=== PATIENT | male | born 1960 | race Two or more races ===

== ENCOUNTER 2020-02-06 03:36 | Emergency (ER) | payer OTHER ==
[~2020-02-06] VITALS: Ht 175.3 cm; Wt 72.6 kg
== END 2020-02-06 09:56 | disposition home or self-care (01) ==
LOC: ER 03:36
DX: N40.1 Benign prostatic hyperplasia with lower urinary tract symptoms (principal); R33.8 Other retention of urine; R31.0 Gross hematuria; Z03.818 Encounter for observation for suspected exposure to other biological agents ruled out

== ENCOUNTER 2021-09-19 21:26 | Inpatient (IN) | payer OTHER ==
[~2021-09-19] VITALS: Ht 172.7 cm; Wt 75.7 kg
[2021-09-25] MEDS ORDERED: CIPROFLOXACIN500 MG PO (11:55)
== END 2021-09-25 12:10 | disposition home or self-care (01) | DRG 690 ==
LOC: ER 21:26 → MEDI 09-20 10:20
PROVIDERS: ADMIT Internal Medicine; ATTEND Internal Medicine
DX: N39.0 Urinary tract infection, site not specified (principal); N41.0 Acute prostatitis; R33.8 Other retention of urine; D72.828 Other elevated white blood cell count; B96.89 Other specified bacterial agents as the cause of diseases classified elsewhere; N40.0 Benign prostatic hyperplasia without lower urinary tract symptoms; Z20.822 Contact with and (suspected) exposure to COVID-19

== ENCOUNTER 2023-02-09 15:03 | Emergency (ER) | payer OTHER ==
[~2023-02-09] VITALS: Ht 172.7 cm; Wt 71.2 kg
[~2023-02-09 15:03] MED LIST: CIPROFLOXACIN500 MG PO
[2023-02-09] MEDS ORDERED: TADALAFIL5 MG PO (15:56)
[2023-02-09] MEDS ORDERED: UROXATRAL10 MG (15:56)
[2023-02-09 17:15] LABS: URINE APPEARANCE Clear; URINE BILIRRUBIN Negative (NEGATIVE); URINE BLOOD Trace; URINE COLOR Yellow; URINE GLUCOSE Negative (NEGATIVE); URINE LEUKOCYTE Moderate; URINE NITRATE Negative; URINE PROTEIN Negative (NEGATIVE); URINE UROBILINOGEN 0.2 E.U./dl
[2023-02-09 17:16] LABS: URINE BACTERIA 240.6 uL (0.0-1933); URINE EPITHELIAL CELLS 11.4 uL (0.0-38.8); URINE RBC 9.9 uL (0.0-20.8); URINE WBC 92.5 uL (0.0-23.2)
[2023-02-09 17:16] LABS: HEMATOCRIT 35.6 % (39.0-48.0); HEMOGLOBIN 11.8 g/dL (13-16.00); MEAN CELL VOLUME 95.2 fL (80.0-100.00); MEAN CORPUSCULAR HEMOGLOBIN 31.5 pg (27.00-32.0); MEAN CORPUSCULAR HGB CONC 33.1 g/dl (32.0-36.0); PLATELET COUNT 320 K/uL (150-450); RED BLOOD COUNT 3.74 M/uL (4.00-6.00); RED CELL DISTRIBUTION WIDTH 12.9 % (11.5-14.5)
[2023-02-09 17:45] LABS: CALCIUM 8.9 mg/dL (8.5-10.1); CREATININE SERUM 0.96 mg/dL (0.70-1.30); GFR 79.37; POTASSIUM 4.42 mEq/L (3.5-5.1)
[2023-02-09] MEDS ORDERED: DUI500 PO (18:40)
== END 2023-02-09 18:42 | disposition home or self-care (01) ==
LOC: ER 15:04
PROVIDERS: General Practice
DX: N39.0 Urinary tract infection, site not specified (principal); Z88.6 Allergy status to analgesic agent